=== PATIENT | male | born 1930 | race Caucasian/White ===

== ENCOUNTER 2017-02-22 13:47 | Observation (INO) | payer MEDICARE ==
[~2017-02-22] VITALS: Ht 167.6 cm; Wt 86.8 kg
[~2017-02-22 13:47] MED LIST: ADAL30TA10 PO; CARD4TAB2 PO; CYMB60CA PO; DORZ1SOL2 OD; ENOX30P SQ; LIPI20TA PO; ZOFR4TAB3 SL
[2017-02-22 13:52] VITALS: BP 157/83; PULSE 80; RESP 20; TEMP 98.1; O2SAT 98
--- NOTE | 2017-02-22 14:04 | PD ---
Physical Exam Date Seen by Provider: Feb 22, 2017 Time Seen by Provider: 14:01 Narrative 86 y/o male presents with one day hx decreased ability to pass urine. Patient reports hx BPH, but no Hx TURP. Patient denies fever, flank pain or burning with Urination. Patient last passed urine yesterday evening. Now having low abdominal pain and Distension. V/S stable Patient awaiting Med Bed. Data Data Last Documented VS Vital Signs Date Time Temp Pulse Resp B/P Pulse Ox O2 Delivery O2 Flow Rate FiO2 02/22/17 13:52 98.1 80 20 157/83 98 Room Air [facility] Medical Record Reviewed: Yes Supervised Visit with NANDINI: Yes Condition: Stable Pedro Conner Feb 22, 2017 14:04
--- NOTE | 2017-02-22 14:46 | PD ---
HPI Chief Complaint: Complaint Time Seen by Provider: 14:32 Travel History International Travel<30 days: No Contact w/Intl Traveler<30days: No Traveled to known affect area: No History of Present Illness HPI Patient is an 86-year-old male presents emergency department for evaluation of urinary retention. Patient states she's always had a weak stream but has been unable to urinate since last night. He endorses some suprapubic fullness and discomfort. Denies any fever denies any nausea or vomiting. Denies any blood in his urine. Patient states he was told he had a large prostate before but never seen a urologist. States currently he has not been able to urinate for at least 12 hours. PFSH Past Medical History Asthma: No Autoimmune Disease: No Blood Disorders: No Heart Rhythm Problems: No Cancer: Yes (LUNG CA) Cardiovascular Problems: No High Cholesterol: Yes Chemotherapy: No Chest Pain: No Congestive Heart Failure: No COPD: No Cerebrovascular Accident: No Diminished Hearing: No Endocrine: No Gastrointestinal Disorders: Yes (PARTICAL GASTRECTOMY) Glaucoma: Yes Genitourinary: No Headaches: No Hypertension: Yes Immune Disorder: No Musculoskeletal: No Neurologic: No Psychiatric: No Reproductive: No Respiratory: Yes Migraines: No Myocardial Infarction: No Radiation Therapy: No Seizures: No Sickle Cell Disease: No Sleep Apnea: No PNEUMOCCOCAL Vaccine (Year): 2010 Past Surgical History AICD: No Arteriovenous Shunt: No Cardiac Surgery: No Eye Surgery: Yes (BILAT CATRACTS) Insulin Pump: No Joint Replacement: No Neurologic Surgery: No Pacemaker: No Thoracic Surgery: Yes (RAÚL LOBECTOMY) Other Surgery: Yes (PARTIAL GASTRECTOMY, LEFT INGUINAL HERNIA REPAIR, EXP. LAP ADHESIONS, DEENA) Social History Alcohol Use: Yes (X2 VODKA DRINKS NIGHTLY) Tobacco Use: No (QUIT IN THE ) Substance Use: No Allergies-Medications (Allergen,Severity, Reaction): Coded Allergies: No Known Allergies (Verified , NO KNOWN ALLERGIES, 02/22/17) Reported Meds & Prescriptions Reported Meds & Active Scripts Active Reported Alphagan P Opth Drops (Brimonidine Tartrate) Unknown Strength Soln Unknown Dose LEFT EYE BID Cosopt Opth Drops (Dorzolamide-Timolol Opth Drops) 22.3-6.8 Mg/Ml Soln 1 Drop LEFT EYE BID Cymbalta DR (Duloxetine HCl) 60 Mg Capdr 60 Mg PO DAILY Atorvastatin (Atorvastatin Calcium) 10 Mg Tab 5 Mg PO DAILY Polytrim Opth Drops (Polymyxin/Trimethoprim Sulfate) 10,000-0.1 Unit/Ml-% Soln 1 Drop EACH EYE BID Vitamin D3 (Cholecalciferol) 1,000 Unit Tab 1,000 Units PO DAILY@1600 Vitamin D3 (Cholecalciferol) 2,000 Unit Cap 2,000 Units PO DAILY Review of Systems Except as stated in HPI: all other systems reviewed are Neg Physical Exam Narrative GENERAL: Well-developed well-nourished no apparent distress. SKIN: Focused skin assessment warm/dry. HEAD: Atraumatic. Normocephalic. EYES: Pupils equal and round. No scleral icterus. No injection or drainage. ENT: No nasal bleeding or discharge. Mucous membranes pink and moist. NECK: Trachea midline. No JVD. CARDIOVASCULAR: Regular rate and rhythm. No murmur appreciated. RESPIRATORY: No accessory muscle use. Clear to auscultation. Breath sounds equal bilaterally. GASTROINTESTINAL: Abdomen soft, there is some suprapubic fullness., minimally distended.. Hepatic and splenic margins not palpable. Patient is nontender. There is a incisional hernia on the right lateral aspect of his abdomen. GENITOURINARY: Patient has phimosis which is fairly swollen. Could not be reduced by myself. MUSCULOSKELETAL: No obvious deformities. No clubbing. No cyanosis. No edema. NEUROLOGICAL: Awake and alert. No obvious cranial nerve deficits. Motor grossly within normal limits. Normal speech. PSYCHIATRIC: Appropriate mood and affect; insight and judgment normal. Data Data Last Documented VS Vital Signs Date Time Temp Pulse Resp B/P Pulse Ox O2 Delivery O2 Flow Rate FiO2 02/22/17 13:52 98.1 80 20 157/83 98 Room Air Orders Ed Poc Ultrasound (02/22/17 ) Urinalysis - C+S If Indicated (02/22/17 14:41) Basic Metabolic Panel (Bmp) (02/22/17 14:41) Urinary Catheter Management SANJAY.Q8H (02/22/17 14:45) Consult Urology (02/22/17 ) (Hub Use Only)Inp Phy Cons/Ref (02/22/17 ) Lidocaine 1% Inj (50 Ml) (Xylocaine 1% I (02/22/17 18:15) Complete Blood Count With Diff (02/22/17 18:45) Act Partial Throm Time (Ptt) (02/22/17 18:45) Prothrombin Time / Inr (Pt) (02/22/17 18:45) Tamsulosin (Flomax) (02/22/17 20:00) ^ Other Nursing Orders (02/22/17 18:58) Admit Order (Ed Use Only) (02/22/17 ) Labs Laboratory Tests Test 02/22/17 02/22/17 16:45 18:30 Sodium Level 140 MEQ/L Potassium Level 3.6 MEQ/L Chloride Level 101 MEQ/L Carbon Dioxide Level 25.2 MEQ/L Anion Gap 14 MEQ/L Blood Urea Nitrogen 21 MG/DL Creatinine 1.00 MG/DL Estimat Glomerular Filtration 71 ML/MIN Rate Random Glucose 91 MG/DL Calcium Level 9.0 MG/DL Urine Color YELLOW Urine Turbidity CLOUDY Urine pH 7.5 Urine Specific [place] 1.020 Urine Protein 30 mg/dL Urine Glucose (UA) NEG mg/dL Urine Ketones TRACE mg/dL Urine Occult Blood LARGE Urine Nitrite NEG Urine Bilirubin NEG Urine Urobilinogen 4.0 MG/DL Urine Leukocyte Esterase LARGE Urine RBC /hpf Urine WBC /hpf Urine WBC Clumps MANY Microscopic Urinalysis Comment CATH-CULTURE IND MDM Medical Decision Making Medical Screen Exam Complete: Yes Emergency Medical Condition: Yes Differential Diagnosis Phimosis, urinary retention, acute kidney injury, prostate enlargement Narrative Course Patient was roomed in the emergency department, fairly obvious from the get go that he was going to need a urology consult. Nursing did try blind insertion of a Vallecillo catheter without success. I tried to reduce his phimosis without success. Dr. Andreas Restrepo is arrived and is performed an emergent circumcision on the patient. Vallecillo catheter was able to be placed in 1000 cc of urine was removed from the patient's bladder. Patient was much relieved after this. He still has lidocaine local anesthetic which she has taken effect and declines any pain medicine at this time. Dr. Restrepo is informed that he liked the patient observed overnight for a check in the morning. Procedures Procedure Narrative Bedside ultrasound transabdominal: Patient is greater than 500 cc of urine in his bladder. My personal experience with my ultrasound as I underestimate urine by about 25%. Like there is significant more urine in his system and he will require Vallecillo catheter. Diagnosis Primary Impression: Urinary retention Additional Impression: Phimosis Admitting Information Admitting Physician Requests: Observation Condition: Stable Al Quevedo MD Feb 22, 2017 14:46
[2017-02-22 18:02] LABS: BICARBONATE 25.2 MEQ/L (21.0-32.0); POTASSIUM 3.6 MEQ/L (3.5-5.1)
[2017-02-22] MEDS ORDERED: LIDOCAINE HCL 1% 50 ML VIAL INFIL ONE (18:15)
--- NOTE | 2017-02-22 18:58 | PD.CONS ---
HPI Service Urology Consult Requested By Primary Care Physician Michoacano Hernandez MD Diagnosis: History of Present Illness 86-year-old male presents to the emergency room with complaints of urinary retention. He is known to have a long history of phimosis and the ER staff was unable to retract the foreskin to place a Vallecillo. Urology was consult a dorsal slit was required in the emergency room in order to obtain access to the phallus. The catheter was then inserted without difficulty and 1200 cc of cloudy urine was drained. He does note a history of difficulty with urination with nocturia times many times at night. He denies any urinary tract infections however. The patient is not retracted his foreskin in many years. He is not diabetic. He used to see Dr. Domingo in the past. Review of Systems Constitutional: DENIES: Diaphoretic episodes Eyes: DENIES: Blurred vision Ears, nose, mouth, throat: DENIES: Tinnitus Respiratory: DENIES: Apneas Cardiovascular: DENIES: Chest pain Gastrointestinal: COMPLAINS OF: Abdominal pain Musculoskeletal: DENIES: Joint pain Integumentary: DENIES: Abnormal pigmentation Hematologic/lymphatic: DENIES: Bruising Immunologic/allergic: DENIES: Eczema Past Family Social History Past Medical History Hypertension High cholesterol PUD Cataracts Past Surgical History Exploratory laparotomy with partial gastric resection Incisional hernia Cataracts Allergies: Coded Allergies: No Known Allergies (Verified , NO KNOWN ALLERGIES, 02/22/17) Family History No prostate cancer Social History Currently drinks alcohol every other day Denies smoking; quit back in the 70s Physical Exam Vital Signs Date Time Temp Pulse Resp B/P Pulse Ox O2 Delivery O2 Flow Rate FiO2 02/22/17 13:52 98.1 80 20 157/83 98 Room Air Physical Exam GENERAL: This is a well-nourished, well-developed patient, in no apparent distress. SKIN: No rashes, ecchymoses or lesions. Cool and dry. HEAD: Atraumatic. Normocephalic. No temporal or scalp tenderness. EYES: Pupils equal round and reactive. Extraocular motions intact. No scleral icterus. No injection or drainage. ENT: Nose without bleeding, purulent drainage or septal hematoma. Throat without erythema, tonsillar hypertrophy or exudate. Uvula midline. Airway patent. NECK: Trachea midline. No JVD or lymphadenopathy. Supple, nontender, no meningeal signs. CARDIOVASCULAR: Regular rate and rhythm without murmurs, gallops, or rubs. RESPIRATORY: Clear to auscultation. Breath sounds equal bilaterally. No wheezes , rales, or rhonchi. GASTROINTESTINAL: Abdomen soft, non-tender, nondistended. No hepato-splenomegaly , or palpable masses. No guarding. GENITOURINARY: Phimosis present, testes descended MUSCULOSKELETAL: Extremities without clubbing, cyanosis, or edema. No joint tenderness, effusion, or edema noted. No calf tenderness. Negative Homans sign bilaterally. NEUROLOGICAL: Awake and alert. Cranial nerves II through XII intact. Motor and sensory grossly within normal limits. Five out of 5 muscle strength in all muscle groups. Normal speech. Laboratory Tests Test 02/22/17 16:45 Sodium Level 140 Potassium Level 3.6 Chloride Level 101 Carbon Dioxide Level 25.2 Anion Gap 14 Blood Urea Nitrogen 21 Creatinine 1.00 Estimat Glomerular Filtration 71 Rate Random Glucose 91 Calcium Level 9.0 Result Diagram: 02/22/17 1595 Assessment and Plan Assessment and Plan Procedure note: Patient was prepped and draped at the bedside in the usual sterile fashion. One percent lidocaine was injected into the foreskin as well as a penile block was performed at the base of the penis. A straight clamp was used to clamp down on the foreskin at the 12 o'clock position. Scissors were then used to perform a dorsal slit. Once the head was exposed, 4-0 chromic sutures were then placed into the foreskin. 16 Croatian coud catheter slid in without difficulty and 1200 cc were then drained from the bladder. The urine was cloudy upon return. He tolerated procedure well. Assessment/plan: 78-year-old male with urinary retention and phimosis requiring dorsal slit in order to place Vallecillo catheter at the bedside. Patient tolerated procedure well. We'll start Flomax 0.4 mg by mouth daily at bedtime. Maintain Vallecillo catheter for 1 week. He'll require a void trial in the office next week and possible scheduling for formal circumcision.- Andreas Restrepo DO Feb 22, 2017 18:58
[2017-02-22] MEDS ORDERED: POLY10O EACH EYE (19:03)
[2017-02-22] MEDS ORDERED: CYMB60CA PO (19:03)
[2017-02-22] MEDS ORDERED: VITA100018 PO (19:03)
[2017-02-22] MEDS ORDERED: VITA2000 PO (19:03)
[2017-02-22] MEDS ORDERED: ALPH0.1S LEFT EYE (19:03)
[2017-02-22] MEDS ORDERED: ATOR10TA15 PO (19:03)
[2017-02-22] MEDS ORDERED: DORZ1SOL2 LEFT EYE (19:03)
[2017-02-22 19:20] LABS: BLOOD, URINE LARGE (NEG); GLUCOSE,URINE NEG (NEG); KETONE, URINE TRACE mg/dL (NEG); NITRITE,URINE NEG (NEG); PH, URINE 7.5 (5.0-8.5); URINE COLOR YELLOW (YELLW/STRAW)
[2017-02-22 19:21] LABS: COMMENT (UR) CATH-CULTURE IND; CULTURE IF INDICATED CATH CULTURE IND
[2017-02-22] MEDS ORDERED: MORPHINE SULFATE 4 MG/ML INJ IV PUSH ONE (19:30)
[2017-02-22] MEDS: TAMSULOSIN HCL 0.4 MG CAP PO SCH (19:30)
[2017-02-22] MEDS ORDERED: cefTRIAXone INJ 1,000 MG in SODIUM CHLORIDE 0.9% INJ 100 ML IV ONE (21:00)
[2017-02-22] MEDS ORDERED: [UNRECOGNIZED DRUG - OTHER] LEFT EYE SCH (21:00)
--- NOTE | 2017-02-22 21:03 | HHI.HP ---
HPI Service [facility] Hospitalists Primary Care Physician Michoacano Hernandez MD Admission Diagnosis Acute Urinary Retention, Phimosis. Chief Complaint: could not urinate today Travel History International Travel<30 Days: No Contact w/Intl Traveler <30 Da: No Traveled to Known Affected Are: No History of Present Illness 86 y/o male with decrease ability to pass urine today with history of BPH,with abdominal pain and distension with hx phimosis ,ER staff could not retract foreskin to place land and urology performed emergent circumcision and land was passed with 1000cc urine obtained and urologist wanted to kept patient overnight. Review of Systems Other inability to pass urine Past Family Social History Past Medical History lung cancer,hyperlipidemia,partial gastrectomy hypertension,glaucoma Past Surgical History cataract,left upperlobeectomy left inguinal hernia ,explor lap for adhesions Reported Medications flomax today,,statin vitamins cymbalta Allergies: Coded Allergies: No Known Allergies (Verified , NO KNOWN ALLERGIES, 02/22/17) Social History vodka nightly none smoker many years Physical Exam Vital Signs Vital Signs Date Time Temp Pulse Resp B/P Pulse Ox O2 Delivery O2 Flow Rate FiO2 02/22/17 13:52 98.1 80 20 157/83 98 Room Air Physical Exam GENERAL: This is a well-nourished, well-developed patient, in no apparent distress. SKIN: No rashes, ecchymoses or lesions. Cool and dry. HEAD: Atraumatic. Normocephalic. No temporal or scalp tenderness. EYES: Pupils equal round and reactive. Extraocular motions intact. No scleral icterus. No injection or drainage. ENT: Nose without bleeding, purulent drainage or septal hematoma. Throat without erythema, tonsillar hypertrophy or exudate. Uvula midline. Airway patent. NECK: Trachea midline. No JVD or lymphadenopathy. Supple, nontender, no meningeal signs. CARDIOVASCULAR: Regular rate and rhythm without murmurs, gallops, or rubs. RESPIRATORY: Clear to auscultation. Breath sounds equal bilaterally. No wheezes , rales, or rhonchi. GASTROINTESTINAL: Abdomen soft, non-tender, nondistended. No hepato-splenomegaly , or palpable masses. No guarding.Was distended before catheter placed MUSCULOSKELETAL: Extremities without clubbing, cyanosis, or edema. No joint tenderness, effusion, or edema noted. No calf tenderness. Negative Homans sign bilaterally. NEUROLOGICAL: Awake and alert. Cranial nerves II through XII intact. Motor and sensory grossly within normal limits. Five out of 5 muscle strength in all muscle groups. Normal speech. Laboratory Laboratory Tests Test 02/22/17 02/22/17 16:45 18:30 Sodium Level 140 Potassium Level 3.6 Chloride Level 101 Carbon Dioxide Level 25.2 Anion Gap 14 Blood Urea Nitrogen 21 Creatinine 1.00 Estimat Glomerular Filtration 71 Rate Random Glucose 91 Calcium Level 9.0 Urine Color YELLOW Urine Turbidity CLOUDY Urine pH 7.5 Urine Specific [employer] [place] 1.020 Urine Protein 30 Urine Glucose (UA) NEG Urine Ketones TRACE Urine Occult Blood LARGE Urine Nitrite NEG Urine Bilirubin NEG Urine Urobilinogen 4.0 Urine Leukocyte Esterase LARGE Urine RBC Urine WBC Urine WBC Clumps MANY Microscopic Urinalysis Comment CATH-CULTURE IND Date/Time Procedure Status Source Growth 02/22/17 18:30 Urine Culture Received Urine Catheterized Urine Pending Result Diagram: 02/22/17 1645 Course as above Assessment and Plan Problem List: (1) Urinary retention Status: Acute Plan: urology saw patient emergent circumcision and land cath placed (2) Phimosis Status: Acute Plan: as above Assessment and Plan flomax started and urology will reacess in am plan as per urology Code Status full Discussed Condition With patient Milton Marc MD Feb 22, 2017 21:03
[2017-02-22] MEDS ORDERED: MORPHINE SULFATE 4 MG/ML INJ IV PRN (21:30)
[2017-02-22] MEDS ORDERED: NALOXONE HCL 0.4 MG/ML AMP IV PRN (21:30)
[2017-02-22] MEDS ORDERED: TEMAZEPAM 15 MG CAP PO PRN (21:30)
[2017-02-22] MEDS ORDERED: SODIUM CHLORIDE 0.9% FLUSH 10 ML FLUSH IV FLUSH PRN (21:30)
[2017-02-22] MEDS ORDERED: ACETAMINOPHEN 325 MG TAB PO PRN (21:30)
[2017-02-22] MEDS: POLYMYXIN/TRIMETHOPRIM OPHT SOLN 10 ML BTL EACH EYE SCH (21:45)
[2017-02-22] MEDS: DORZOLAMIDE/TIMOLOL OPTH SOLN 10 ML BTL LEFT EYE SCH (21:46)
[2017-02-22 21:51] VITALS: BP 148/72; PULSE 74; RESP 18; O2SAT 95
[2017-02-22 23:40] VITALS: BP 154/84; PULSE 75; RESP 20; TEMP 97.8; O2SAT 93
[2017-02-22 23:48] LABS: BASOPHIL # 0.1 TH/MM3 (0-0.2); BASOPHIL % 0.7 % (0.0-2.0); EOSINOPHIL % 0.5 % (0.0-4.0); HEMATOCRIT 41.2 % (39.0-51.0); HEMO FLAGS DIFF FINAL; LYMPH % 17.6 % (9.0-44.0); LYMPHOCYTE # 1.7 TH/MM3 (1.0-4.8); MEAN CELL VOLUME 93.6 FL (80.0-100.0); MEAN CORPUSCULAR HEMOGLOBIN 31.3 PG (27.0-34.0); MEAN CORPUSCULAR HGB CONC 33.5 % (32.0-36.0); MONO % 7.1 % (0.0-8.0); NEUT % 74.1 % (16.0-70.0); PLATELET COUNT 117 TH/MM3 (150-450); RED CELL DISTRIBUTION WIDTH 14.9 % (11.6-17.2); WHITE BLOOD COUNT 9.4 TH/MM3 (4.0-11.0)
[2017-02-23 00:05] LABS: APTT (PATIENT) 26.4 SEC (24.3-30.1)
[2017-02-23 03:49] VITALS: BP 123/79; PULSE 84; RESP 20; TEMP 98.1; O2SAT 94
[2017-02-23 06:07] LABS: BACTERIA, URINE RARE /hpf
[2017-02-23 06:12] LABS: PH, URINE 7.5 (5.0-8.5); URINE COLOR RED (YELLW/STRAW)
[2017-02-23 06:13] LABS: BLOOD, URINE LARGE (NEG); GLUCOSE,URINE NEG (NEG); KETONE, URINE TRACE mg/dL (NEG); NITRITE,URINE NEG (NEG)
[2017-02-23 06:14] LABS: COMMENT (UR) CATH-CULTURE IND; CULTURE IF INDICATED CATH CULTURE IND
[2017-02-23 07:36] VITALS: BP 120/86; PULSE 82; RESP 17; TEMP 97.6; O2SAT 95
--- NOTE | 2017-02-23 08:48 | HHI.PR ---
Subjective Patient symptoms today Pt feels better this AM. S/P dorsal slit with land insertion Objective Vital Signs Vital Signs Date Time Temp Pulse Resp B/P Pulse Ox O2 Delivery O2 Flow Rate FiO2 02/23/17 07:36 97.6 82 17 120/86 95 02/23/17 04:56 18 02/23/17 03:49 98.1 84 20 123/79 94 02/23/17 01:00 18 02/22/17 23:40 97.8 75 20 154/84 93 02/22/17 21:51 74 18 148/72 95 Room Air 02/22/17 13:52 98.1 80 20 157/83 98 Room Air Result Diagram: 02/22/17 2320 02/22/17 1645 Objective Remarks Abd:soft,nt,nd Land with sediment Wound: minimal drainage; ok Medications and IVs Current Medications Medications (Trade) Dose Ordered Sig/Zafar Route Start Time Stop Time Status Last Admin (Flomax) 0.4 mg DAILY PO 02/22/17 20:00 02/22/17 19:30 (Lipitor) 5 mg DAILY PO 02/23/17 09:00 (Vitamin D3) 2,000 units DAILY PO 02/23/17 09:00 (Cymbalta Dr) 60 mg DAILY PO 02/23/17 09:00 (Polytrim Opht Soln) 1 drop BID EACH EYE 02/22/17 21:00 02/22/17 21:45 (Cosopt 2-0.5% Opth Soln) 1 drop BID LEFT EYE 02/22/17 21:00 02/22/17 21:46 (NS Flush) 2 ml UNSCH PRN IV FLUSH 02/22/17 21:30 (NS Flush) 2 ml BID IV FLUSH 02/23/17 09:00 (Restoril) 15 mg HS PRN PO 02/22/17 21:30 (Tylenol) 650 mg Q8HR PRN PO 02/22/17 21:30 02/22/17 23:45 (Morphine Inj) 2 mg Q6HR PRN IV 02/22/17 21:30 02/23/17 04:03 (Narcan Inj) 0.4 mg UNSCH PRN IV 02/22/17 21:30 Assessment and Plan Assessment and Plan Procedure note: Patient was prepped and draped at the bedside in the usual sterile fashion. One percent lidocaine was injected into the foreskin as well as a penile block was performed at the base of the penis. A straight clamp was used to clamp down on the foreskin at the 12 o'clock position. Scissors were then used to perform a dorsal slit. Once the head was exposed, 4-0 chromic sutures were then placed into the foreskin. 16 Syriac coud catheter slid in without difficulty and 1200 cc were then drained from the bladder. The urine was cloudy upon return. He tolerated procedure well. Assessment/plan: 78-year-old male with urinary retention and phimosis requiring dorsal slit in order to place Land catheter at the bedside. Patient tolerated procedure well. We'll start Flomax 0.4 mg by mouth daily at bedtime. Maintain Land catheter for 1 week. He'll require a void trial in the office next week and possible scheduling for formal circumcision.- 02/23 Stable s/p dorsal slit with land insertion Continue Flomax Rx UTI F/U one week for void trial in office Andreas Restrepo DO Feb 23, 2017 08:48
[2017-02-23] MEDS: TAMSULOSIN HCL 0.4 MG CAP PO SCH (09:17)
[2017-02-23] MEDS: DULoxetine HCl DR 60 MG CAP PO SCH (09:17)
[2017-02-23] MEDS: CHOLECALCIFEROL (VIT D3) 1000 UNIT TAB PO SCH (09:19)
[2017-02-23] MEDS: ATORVASTATIN 10 MG TAB PO SCH (09:20)
[2017-02-23] MEDS: DORZOLAMIDE/TIMOLOL OPTH SOLN 10 ML BTL LEFT EYE SCH ×2 (09:20→20:43)
[2017-02-23] MEDS: SODIUM CHLORIDE 0.9% FLUSH 10 ML FLUSH IV FLUSH SCH ×2 (09:20→20:44)
[2017-02-23] MEDS: POLYMYXIN/TRIMETHOPRIM OPHT SOLN 10 ML BTL EACH EYE SCH ×2 (09:20→20:43)
--- NOTE | 2017-02-23 11:17 | HHI.PR ---
Subjective Remarks pt doing well no complaints Objective Vitals heent neg heart reg lung cta abd s/nt ext no edema land Vital Signs Date Time Temp Pulse Resp B/P Pulse Ox O2 Delivery O2 Flow Rate FiO2 02/23/17 07:36 97.6 82 17 120/86 95 02/23/17 04:56 18 02/23/17 03:49 98.1 84 20 123/79 94 02/23/17 01:00 18 02/22/17 23:40 97.8 75 20 154/84 93 02/22/17 21:51 74 18 148/72 95 Room Air 02/22/17 13:52 98.1 80 20 157/83 98 Room Air 02/22/17 02/22/17 02/23/17 15:00 23:00 07:00 Output Total 800 ml Balance -800 ml Output Urine Total 800 ml # Voids 0 Result Diagram: 02/22/17 2320 02/22/17 1645 A/P Problem List: (1) Urinary retention Status: Acute Plan: Pt seen for urinary retention/phimosis uti..gnr s/p dorsal slit/land insertion flomax f/u dr Restrepo in a week and keep land in for a week. voiding trial then and possible arrangement for circumcision. will need CM and PT eval for home safety...lives alone and was already using a walker. 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 his social situation. ?might convert to leg bag if needed.....?hhc vs snf. (2) Phimosis Status: Acute Plan: as above Bhargav Rodriguez MD Feb 23, 2017 11:17
[2017-02-23 12:05] VITALS: BP 163/78; PULSE 64; RESP 18; TEMP 97.4; O2SAT 94
[2017-02-23] MEDS: ONDANSETRON HCL 4 MG/2 ML VIAL IV PUSH PRN ×2 (13:27→17:22)
[2017-02-23] MEDS: AZTREONAM INJ 1,000 MG in SODIUM CHLORIDE 0.9% INJ 100 ML IV SCH ×2 (14:13→20:44)
[2017-02-23 15:54] VITALS: BP 138/78; PULSE 57; RESP 18; TEMP 97.4; O2SAT 93
[2017-02-23 19:31] VITALS: BP 141/67; PULSE 59; RESP 18; TEMP 97.5; O2SAT 91
[2017-02-23 23:32] VITALS: BP 140/90; PULSE 58; RESP 18; TEMP 97.8; O2SAT 91; O2SAT 95
[2017-02-24] MEDS: ONDANSETRON HCL 4 MG/2 ML VIAL IV PUSH PRN ×2 (03:48→13:21)
[2017-02-24 03:57] VITALS: BP 148/83; PULSE 76; RESP 18; TEMP 97.7; O2SAT 94
[2017-02-24] MEDS: AZTREONAM INJ 1,000 MG in SODIUM CHLORIDE 0.9% INJ 100 ML IV SCH (04:55)
[2017-02-24 08:00] VITALS: BP 141/92; PULSE 68; RESP 20; TEMP 96.2; O2SAT 95
--- NOTE | 2017-02-24 08:04 | HHI.PR ---
Subjective Patient symptoms today Pt seen and examined. Some nausea. Land with some sediment. Ucx with GNR's. Objective Vital Signs Vital Signs Date Time Temp Pulse Resp B/P Pulse Ox O2 Delivery O2 Flow Rate FiO2 02/24/17 03:57 97.7 76 18 148/83 94 02/23/17 23:32 97.8 58 18 140/90 95 02/23/17 19:31 97.5 59 18 141/67 91 02/23/17 15:54 97.4 57 18 138/78 93 02/23/17 12:05 97.4 64 18 163/78 94 Result Diagram: 02/22/17 2320 02/22/17 1645 Objective Remarks Abd:soft,nt,nd Land with sediment Wound: minimal drainage; ok 02/24 Abd:soft,nt,nd Wound: dressing in place Land: clearing with some sediment. Medications and IVs Current Medications Medications (Trade) Dose Ordered Sig/Zafar Route Start Time Stop Time Status Last Admin (Flomax) 0.4 mg DAILY PO 02/22/17 20:00 02/23/17 09:17 (Lipitor) 5 mg DAILY PO 02/23/17 09:00 02/23/17 09:20 (Vitamin D3) 2,000 units DAILY PO 02/23/17 09:00 02/23/17 09:19 (Cymbalta Dr) 60 mg DAILY PO 02/23/17 09:00 02/23/17 09:17 (Polytrim Opht Soln) 1 drop BID EACH EYE 02/22/17 21:00 02/23/17 20:43 (Cosopt 2-0.5% Opth Soln) 1 drop BID LEFT EYE 02/22/17 21:00 02/23/17 20:43 (NS Flush) 2 ml UNSCH PRN IV FLUSH 02/22/17 21:30 (NS Flush) 2 ml BID IV FLUSH 02/23/17 09:00 02/23/17 20:44 (Restoril) 15 mg HS PRN PO 02/22/17 21:30 (Tylenol) 650 mg Q8HR PRN PO 02/22/17 21:30 02/22/17 23:45 (Morphine Inj) 2 mg Q6HR PRN IV 02/22/17 21:30 02/23/17 04:03 Naloxone HCl 0.4 mg 0.4 mg UNSCH PRN IV 02/22/17 21:30 (Azactam Inj/NS Inj) 100 ml @ 200 mls/hr Q8H IV 02/23/17 13:00 02/24/17 04:55 (Zofran Inj) 4 mg Q4HR PRN IV PUSH 02/23/17 12:45 02/24/17 03:48 Assessment and Plan Assessment and Plan Procedure note: Patient was prepped and draped at the bedside in the usual sterile fashion. One percent lidocaine was injected into the foreskin as well as a penile block was performed at the base of the penis. A straight clamp was used to clamp down on the foreskin at the 12 o'clock position. Scissors were then used to perform a dorsal slit. Once the head was exposed, 4-0 chromic sutures were then placed into the foreskin. 16 Estonian coud catheter slid in without difficulty and 1200 cc were then drained from the bladder. The urine was cloudy upon return. He tolerated procedure well. Assessment/plan: 78-year-old male with urinary retention and phimosis requiring dorsal slit in order to place Land catheter at the bedside. Patient tolerated procedure well. We'll start Flomax 0.4 mg by mouth daily at bedtime. Maintain Land catheter for 1 week. He'll require a void trial in the office next week and possible scheduling for formal circumcision.- 02/23 Stable s/p dorsal slit with land insertion Continue Flomax Rx UTI F/U one week for void trial in office 02/24 Stable s/p dorsal slit with AUR Continue Flomax Continue ABx F/U on Friday for void trial in office Andreas Restrepo DO Feb 24, 2017 08:04
--- NOTE | 2017-02-24 09:24 | HHI.PR ---
Subjective Remarks No new complaints Urine is clearing up, still some sediment noted Afebrile Objective Vitals Vital Signs Date Time Temp Pulse Resp B/P Pulse Ox O2 Delivery O2 Flow Rate FiO2 02/24/17 08:00 96.2 68 20 141/92 95 02/24/17 03:57 97.7 76 18 148/83 94 02/23/17 23:32 97.8 58 18 140/90 95 02/23/17 19:31 97.5 59 18 141/67 91 02/23/17 15:54 97.4 57 18 138/78 93 02/23/17 12:05 97.4 64 18 163/78 94 02/23/17 02/23/17 02/24/17 15:00 23:00 07:00 Intake Total 480 ml Output Total 550 ml 320 ml Balance -70 ml -320 ml Intake Oral 480 ml Output Urine Total 550 ml 320 ml Result Diagram: 02/22/17 5645 02/22/17 3435 Other Results Laboratory Tests Test 02/22/17 02/22/17 02/22/17 02/22/17 16:45 18:30 19:35 23:20 Sodium Level 140 MEQ/L Potassium Level 3.6 MEQ/L Chloride Level 101 MEQ/L Carbon Dioxide Level 25.2 MEQ/L Anion Gap 14 MEQ/L Blood Urea Nitrogen 21 MG/DL Creatinine 1.00 MG/DL Estimat Glomerular Filtration 71 ML/MIN Rate Random Glucose 91 MG/DL Calcium Level 9.0 MG/DL Urine Color YELLOW RED Urine Turbidity CLOUDY CLOUDY Urine pH 7.5 7.5 Urine Specific Flynn 1.020 1.012 Urine Protein 30 mg/dL 100 mg/dL Urine Glucose (UA) NEG mg/dL NEG mg/dL Urine Ketones TRACE mg/dL TRACE mg/dL Urine Occult Blood LARGE LARGE Urine Nitrite NEG NEG Urine Bilirubin NEG NEGATIVE Urine Urobilinogen 4.0 MG/DL LESS THAN 2.0 MG/DL Urine Leukocyte Esterase LARGE LARGE Urine RBC /hpf /hpf Urine WBC /hpf /hpf Urine WBC Clumps MANY MANY Microscopic Urinalysis Comment CATH-CULTURE CATH-CULTURE IND IND Urine Bacteria RARE /hpf White Blood Count 9.4 TH/MM3 Red Blood Count 4.40 MIL/MM3 Hemoglobin 13.8 GM/DL Hematocrit 41.2 % Mean Corpuscular Volume 93.6 FL Mean Corpuscular Hemoglobin 31.3 PG Mean Corpuscular Hemoglobin 33.5 % Concent Red Cell Distribution Width 14.9 % Platelet Count 117 TH/MM3 Mean Platelet Volume 8.7 FL Neutrophils (%) (Auto) 74.1 % Lymphocytes (%) (Auto) 17.6 % Monocytes (%) (Auto) 7.1 % Eosinophils (%) (Auto) 0.5 % Basophils (%) (Auto) 0.7 % Neutrophils # (Auto) 7.0 TH/MM3 Lymphocytes # (Auto) 1.7 TH/MM3 Monocytes # (Auto) 0.7 TH/MM3 Eosinophils # (Auto) 0.0 TH/MM3 Basophils # (Auto) 0.1 TH/MM3 CBC Comment DIFF FINAL Differential Comment Prothrombin Time 11.0 SEC Prothromb Time International 1.0 RATIO Ratio Activated Partial 26.4 SEC Thromboplast Time Objective Remarks General: NAD, AAOx3 Chest: CTA bilaterally Cardiac: Regular Abd: +BS, soft ND/NT : Vallecillo cath in place Ext: No edema A/P Problem List: (1) Urinary retention Status: Acute Plan: - Pt seen for urinary retention/phimosis - UA abnormal and urine culture growing GNR - Urology following. Pt s/p dorsal slit/Vallecillo insertion - Flomax - Discussed with the pt discharge to SNF vs. HHC/PT and he is refusing SNF. - Pt will f/u with Dr. Restrepo on Friday this week and is to keep the Vallecillo in place with a leg bag. He will have a voiding trial on Friday and possible arrangement for circumcision. 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 Pt has been treated here with IV Aztreonam - Pt is agreeable to SNF. - Previous cultures were reviewed. - We will prescribe Keflex and will discuss with Dr. Marc who will be following him at rehab about following up on the culture results to ensure proper antibiotic coverage (2) Phimosis Status: Acute Plan: - As above Assessment and Plan Patient examined. Assessment and plan formulated with Rafia Koroma PA-C. I agree with the above. Rafia Koroma Feb 24, 2017 09:24 Mati Aj DO March 07, 2017 13:33
[2017-02-24] MEDS ORDERED: CEPH-460 PO (09:25)
--- NOTE | 2017-02-24 09:26 | HHI.DCPOC ---
Discharge Care Plan Diagnosis: (1) Urinary retention (2) Phimosis Goals to Promote Your Health * To prevent worsening of your condition and complications * To maintain your health at the optimal level Directions to Meet Your Goals Take your medications as prescribed Follow your dietary instruction Follow activity as directed Keep your appointments as scheduled Take your immunizations and boosters as scheduled If your symptoms worsen call your PCP, if no PCP go to Urgent Care Center or Emergency Room Smoking is Dangerous to Your Health. Avoid second hand smoke Call the 24-hour hour crisis hotline for domestic abuse at Rafia Koroma Feb 24, 2017 09:26 Mati Aj DO March 07, 2017 13:33
--- NOTE | 2017-02-24 09:28 | HHI.FF ---
Face to Face Verification Diagnosis: (1) Urinary retention (2) Phimosis Physical Therapy Order: Evaluate and Treat, Improve ambulation, Strength and gait training Home Health Nursing Order: Nursing assessment with vital signs Vallecillo catheter maintenance I have seen patient Joshua Mckinnon on 02/24/17. My clinical findings support the need for the requested home health care services because: High risk of falls I certify that my clinical findings support that this patient is homebound because: Unsteady gait/balance Rafia Koroma Feb 24, 2017 09:28 Mati Aj DO March 07, 2017 13:33
[2017-02-24] MEDS: POLYMYXIN/TRIMETHOPRIM OPHT SOLN 10 ML BTL EACH EYE SCH (10:31)
[2017-02-24] MEDS: DULoxetine HCl DR 60 MG CAP PO SCH (10:31)
[2017-02-24] MEDS: DORZOLAMIDE/TIMOLOL OPTH SOLN 10 ML BTL LEFT EYE SCH (10:31)
[2017-02-24] MEDS: CHOLECALCIFEROL (VIT D3) 1000 UNIT TAB PO SCH (10:32)
[2017-02-24] MEDS: ATORVASTATIN 10 MG TAB PO SCH (10:32)
[2017-02-24] MEDS: TAMSULOSIN HCL 0.4 MG CAP PO SCH (10:32)
[2017-02-24] MEDS: SODIUM CHLORIDE 0.9% FLUSH 10 ML FLUSH IV FLUSH SCH (10:34)
[2017-02-24 12:00] VITALS: BP 160/86; PULSE 84; RESP 20; TEMP 96.4; O2SAT 95
[2017-03-11] MEDS ORDERED: TAMS5CAP PO (11:27)
[2017-04-15] MEDS ORDERED: K-TA10TA PO (14:24)
[2017-04-15] MEDS ORDERED: METO-426 PO (14:24)
[2017-04-15] MEDS ORDERED: TAMS5CAP PO (15:20)
== END 2017-02-24 14:17 ==
LOC: NEPD 13:47 → NEDA 19:05 → NEPGCP 23:34
PROVIDERS: ADMIT Hospitalist; ATTEND Hospitalist
DX: N47.1 Phimosis (principal); N39.0 Urinary tract infection, site not specified; B96.5 Pseudomonas (aeruginosa) (mallei) (pseudomallei) as the cause of diseases classified elsewhere; N40.1 Benign prostatic hyperplasia with lower urinary tract symptoms; R33.8 Other retention of urine; R39.12 Poor urinary stream; R35.1 Nocturia; R10.30 Lower abdominal pain, unspecified; I10 Essential (primary) hypertension; K43.2 Incisional hernia without obstruction or gangrene; E78.5 Hyperlipidemia, unspecified; Z85.118 Personal history of other malignant neoplasm of bronchus and lung
CPT/HCPCS: 51703; 54001; 80048; 81001; 85025; 85610; 85730; 87086; 97162; 99284; G0378; G8987; G8988; J0696; J2270; J2405; 87077; 87186